=== PATIENT | female | born 1935 | race Two or more races ===

== ENCOUNTER 2017-06-30 02:02 | Inpatient (IN) | payer OTHER ==
[~2017-06-30] VITALS: Ht 175.3 cm; Wt 88.3 kg
[~2017-06-30 02:02] MED LIST: AMLO5TAB2 PO; ATOR20TA50 PO; CEPH500C PO; CLON0.1T PO; DOXY25SU3 OR; GABA-339 PO; LISI40TA PO; MELO15TA4 PO; MET50T PO; METF-370 PO; OXYB15TA12 PO; [UNRECOGNIZED DRUG - CODE] PO; [UNRECOGNIZED DRUG - CODE] PO
[2017-06-30 03:28] LABS: Basophils # (auto) 0.1 uL; Basophils % (auto) 0.7 % (0.0-2.0); Eosinophils # (auto) 0.1 uL; Eosinophils % (auto) 0.5 % (0.0-7.0); Hematocrit 41.5 % (36.0-46.0); Lymphocytes # (auto) 1.2 uL; Lymphocytes % (auto) 6.2 % (10.0-50.0); Mean Corpuscular Hemoglobin 29.6 pg (28.0-32.0); Mean Corpuscular Hgb Conc. 33.8 g/dL (32.0-36.0); Mean Corpuscular Volume 87.7 fL (80.0-100.0); Mean Platelet Volume 6.6 fL (6.9-10.8); Monocytes # (auto) 1.5 uL; Monocytes % (auto) 7.7 % (0.0-12.0); Neutrophils % (auto) 84.9 % (37.0-80.0); Nucleated Red Blood Cells % 0.1 %; Platelet Count (auto) 237 10^3/uL (140-450); Red Cell Distribution Width 14.5 % (11.8-14.3)
[2017-06-30 03:41] LABS: INR 0.9 (0.9-1.15); Partial Thromboplastin Time 27.5 sec (22.64-33.71); Prothrombin Time 9.8 sec (9.37-12.3)
[2017-06-30 03:46] LABS: Albumin 3.5 g/dL (3.4-5.0); BUN/Creatinine Ratio 21.1; Calcium 9.5 mg/dL (8.5-10.1); Potassium 4.3 mmol/L (3.5-5.1)
[2017-06-30 03:51] LABS: Bilirubin, Total 0.6 mg/dL (0.2-1.0); Total Protein 7.6 g/dL (6.4-8.2)
[2017-06-30] MEDS ORDERED: ALBUTEROL SULF 2.5 MG/0.5ML(0.5%) NEB SOLN NEB ONE (05:00)
[2017-06-30] MEDS ORDERED: IPRATROPIUM BROM 0.5 MG/2.5ML INH SOL NEB ONE (05:00)
[2017-06-30] MEDS ORDERED: PIPERACILLIN-TAZOB 3.375GM 50 ML IV ONE (05:00)
[2017-06-30] MEDS ORDERED: methylPREDNISolone SOD SUCC 125 MG/2 ML VL IV ONE (05:00)
[2017-06-30 05:19] LABS: Allen Test Yes; Base Excess 0.6 mmol/L (-2.0-2.0); Blood 02Sat 91.1 % (96-100); Blood COHb 0.4 % (0.5-1.5); Blood MetHb 0.2 % (0.0-1.5); HCO3 24.3 mmol/L (22-26.0); HHb 8.8 % (0.0-5.0); MODE ROOM AIR; O2Hb 90.6 % (94.0-97.0); PCO2(T) 36.8 mmHg (35.0-45.0); PO2 59.9 mmHg (80.0-100.0); Sample Type Arterial; pH 7.447 (7.350-7.450)
[2017-06-30 05:43] LABS: B-Type Natriuretic Peptide 81.87 pg/mL (0-100)
[2017-06-30 05:53] LABS: Temperature: 22.7 C (20.0-25.0)
[2017-06-30] MEDS ORDERED: NITROGLYCERIN 0.4 MG SL TAB SL PRN (09:45)
[2017-06-30] MEDS ORDERED: LACTULOSE 20Gm/30ML SOLN PO PRN (09:45)
[2017-06-30] MEDS ORDERED: ACETAMINOPHEN 500 MG TAB PO PRN (09:45)
[2017-06-30] MEDS ORDERED: OSELTAMIVIR 75 MG CAP PO ONE (09:45)
[2017-06-30] MEDS ORDERED: DEXTROSE (50%) 50ML SYRG IV PRN (09:45)
[2017-06-30] MEDS ORDERED: HYDROcodone-ACET 5/325MG TAB PO PRN (09:45)
[2017-06-30] MEDS ORDERED: MORPHINE SULF INJ 2 MG/ML SYRINGE 1ML IV PRN ×2 (09:45)
[2017-06-30] MEDS ORDERED: VANCOMYCIN PER PHARMACY 0 MG IV SCH (09:45)
[2017-06-30] MEDS ORDERED: ALBUTEROL SULF 2.5 MG/0.5ML(0.5%) NEB SOLN NEB PRN (09:45)
[2017-06-30] MEDS ORDERED: VANCOMYCIN 1GM/250ML 250 ML IV ONE (09:45)
[2017-06-30] MEDS ORDERED: PROMETHAZINE HCL 25 MG/ML 1ML IV PRN (09:45)
[2017-06-30] MEDS ORDERED: OSELTAMIVIR 75 MG CAP PO SCH (10:00)
[2017-06-30] MEDS ORDERED: AZITHROMYCIN 500MG/ 250ML 250 ML IV ONE (10:15)
[2017-06-30] MEDS: PANTOPRAZOLE 40 MG TAB PO SCH (11:16)
[2017-06-30] MEDS: ASPirin 81 mg TAB PO SCH (11:16)
[2017-06-30] MEDS: ENOXAPARIN SOD 40 MG/0.4 ML SYRINGE SC SCH (11:16)
[2017-06-30 11:36] VITALS: BP 130/47
[2017-06-30] MEDS: cefTRIAXone 1GM/10ml IVPUSH 10 ML IV SCH (11:36)
[2017-06-30] MEDS: SODIUM CHLORIDE 0.9% 1,000 ML IV SCH ×2 (11:36→23:11)
[2017-06-30] MEDS ORDERED: POTA10TA34 (11:45)
[2017-06-30] MEDS ORDERED: FUR20T (11:45)
[2017-06-30] MEDS ORDERED: FLUT100M (11:45)
[2017-06-30] MEDS: VANCOMYCIN 1GM/250ML 250 ML IV SCH (12:00)
[2017-06-30] MEDS ORDERED: cloNIDine HCL 0.1 MG TAB PO PRN (12:00)
[2017-06-30] MEDS ORDERED: PATIENTS OWN MEDICATION (Gabapentin 600 MG) PO SCH ×2 (12:00)
[2017-06-30] MEDS: ALBUTEROL SULF 2.5 MG/0.5ML(0.5%) NEB SOLN NEB SCH ×3 (12:14→23:38)
[2017-06-30] MEDS: IPRATROPIUM BROM 0.5 MG/2.5ML INH SOL NEB SCH ×3 (12:14→23:38)
[2017-06-30] MEDS: ACCU-CHEK COMFORT CURVE STRIP VI SCH ×3 (13:09→21:43)
[2017-06-30] MEDS: InsuLIN REG 1unit/0.01ml Soln (100units/ml) SC SCH ×3 (13:20→21:35)
[2017-06-30] MEDS: OXYBUTYNIN CHL 5 MG TAB PO SCH ×3 (13:29→21:26)
[2017-06-30] MEDS ORDERED: GABAPENTIN 400 MG CAP PO SCH (13:36)
[2017-06-30] MEDS ORDERED: methylPREDNISolone SOD SUCC 40 MG/ML VL IV SCH (17:00)
[2017-06-30 18:00] VITALS: BP 154/54
[2017-06-30] MEDS: BUDESONIDE (INHALATION) 0.5 MG/2 ML NEB NEB SCH (18:15)
[2017-06-30] MEDS: GABAPENTIN 400 MG CAP PO SCH (21:25)
[2017-06-30 22:00] VITALS: BP 155/41
[2017-06-30] MEDS ORDERED: OSELTAMIVIR 30 MG CAP PO SCH (22:00)
[2017-06-30] MEDS ORDERED: ADVAIR INH SCH (22:00)
[2017-07-01 05:00] VITALS: BP 155/100
[2017-07-01] MEDS: OXYBUTYNIN CHL 5 MG TAB PO SCH ×3 (05:54→20:59)
[2017-07-01] MEDS: GABAPENTIN 400 MG CAP PO SCH ×3 (05:54→20:58)
[2017-07-01] MEDS: methylPREDNISolone SOD SUCC 40 MG/ML VL IV SCH (05:54)
[2017-07-01] MEDS: InsuLIN REG 1unit/0.01ml Soln (100units/ml) SC SCH ×4 (06:01→22:00)
[2017-07-01] MEDS: ACCU-CHEK COMFORT CURVE STRIP VI SCH ×4 (06:02→21:00)
[2017-07-01] MEDS: IPRATROPIUM BROM 0.5 MG/2.5ML INH SOL NEB SCH ×3 (06:45→21:52)
[2017-07-01] MEDS: ALBUTEROL SULF 2.5 MG/0.5ML(0.5%) NEB SOLN NEB SCH ×3 (06:45→21:49)
[2017-07-01] MEDS: BUDESONIDE (INHALATION) 0.5 MG/2 ML NEB NEB SCH ×2 (06:46→21:52)
[2017-07-01 07:11] LABS: Basophils # (auto) 0 uL; Basophils % (auto) 0.1 % (0.0-2.0); Eosinophils # (auto) 0 uL; Hematocrit 38.5 % (36.0-46.0); Hemoglobin 12.8 g/dL (12.2-16.2); Lymphocytes # (auto) 1.2 uL; Lymphocytes % (auto) 5.5 % (10.0-50.0); Mean Corpuscular Hemoglobin 29.3 pg (28.0-32.0); Mean Corpuscular Hgb Conc. 33.4 g/dL (32.0-36.0); Mean Corpuscular Volume 87.9 fL (80.0-100.0); Mean Platelet Volume 7.1 fL (6.9-10.8); Monocytes # (auto) 1.1 uL; Monocytes % (auto) 5.1 % (0.0-12.0); Neutrophils # (auto) 19.3 uL; Neutrophils % (auto) 89.3 % (37.0-80.0); Nucleated Red Blood Cells % 0.1 %; Platelet Count (auto) 214 10^3/uL (140-450); Red Cell Distribution Width 14.3 % (11.8-14.3); White Blood Cell 21.7 10^3/uL (4.4-10.8)
[2017-07-01 07:35] LABS: Albumin 2.9 g/dL (3.4-5.0); BUN/Creatinine Ratio 23.7; Bilirubin, Total 0.5 mg/dL (0.2-1.0); Potassium 4.2 mmol/L (3.5-5.1); Total Protein 6.8 g/dL (6.4-8.2)
[2017-07-01 08:00] VITALS: BP 132/47
[2017-07-01 09:00] VITALS: BP 132/47
[2017-07-01] MEDS: cefTRIAXone 1GM/10ml IVPUSH 10 ML IV SCH (09:07)
[2017-07-01] MEDS: AZITHROMYCIN 500MG/ 250ML 250 ML IV SCH (09:47)
[2017-07-01] MEDS: ENOXAPARIN SOD 40 MG/0.4 ML SYRINGE SC SCH (09:47)
[2017-07-01] MEDS: PANTOPRAZOLE 40 MG TAB PO SCH (09:49)
[2017-07-01] MEDS: amLODIPine BESYLATE 5 MG TAB PO SCH (09:49)
[2017-07-01] MEDS: ASPirin 81 mg TAB PO SCH (09:49)
[2017-07-01] MEDS: LISINOPRIL 20 MG TAB PO SCH (09:49)
[2017-07-01] MEDS: MELOXICAM PO SCH (10:00)
[2017-07-01] MEDS ORDERED: VANCOMYCIN PER PHARMACY 0 MG IV SCH (12:00)
[2017-07-01] MEDS ORDERED: VANCOMYCIN 1GM/250ML 250 ML IV ONE (12:00)
[2017-07-01] MEDS: PIPERACILLIN-TAZOB 3.375GM 50 ML IV SCH ×3 (12:12→23:59)
[2017-07-01] MEDS: SODIUM CHLORIDE 0.9% 1,000 ML IV SCH (12:12)
[2017-07-01 13:00] VITALS: BP 141/61
[2017-07-01] MEDS: VANCOMYCIN 1GM/250ML 250 ML IV SCH (13:29)
[2017-07-01 16:27] LABS: Urine Bilirubin Negative (Negative); Urine Blood 1+ /uL (Negative); Urine Color Yellow (Yellow); Urine Glucose Normal (Normal); Urine Ketone Negative (Negative); Urine Nitrite Negative (Negative); Urine RBC 12 /hpf (0 - 4); Urine Squamous Epithelial Cell FEW /hpf (<5); Urine Urobilinogen Normal (Negative); Urine pH 5.5 (5.0-8.0)
[2017-07-01 17:00] VITALS: BP_SYST 125; BP_SYST 132; BP_DIAS 101; BP_DIAS 43
[2017-07-01] MEDS: TEMAZEPAM 15 MG CAP PO PRN (20:59)
[2017-07-01 21:30] VITALS: BP 151/62
[2017-07-02] MEDS: LORazepam 0.5 MG TAB PO PRN ×3 (01:15→23:24)
[2017-07-02] MEDS: IPRATROPIUM BROM 0.5 MG/2.5ML INH SOL NEB SCH ×4 (01:36→20:37)
[2017-07-02] MEDS: ALBUTEROL SULF 2.5 MG/0.5ML(0.5%) NEB SOLN NEB SCH ×4 (01:36→20:37)
[2017-07-02 05:00] VITALS: BP 152/54
[2017-07-02] MEDS: SODIUM CHLORIDE 0.9% 1,000 ML IV SCH ×2 (05:25→13:35)
[2017-07-02] MEDS: PIPERACILLIN-TAZOB 3.375GM 50 ML IV SCH ×4 (05:25→23:25)
[2017-07-02] MEDS: OXYBUTYNIN CHL 5 MG TAB PO SCH ×3 (05:26→21:03)
[2017-07-02] MEDS: methylPREDNISolone SOD SUCC 40 MG/ML VL IV SCH (05:26)
[2017-07-02] MEDS: GABAPENTIN 400 MG CAP PO SCH ×3 (05:26→21:03)
[2017-07-02 05:45] LABS: Basophils # (auto) 0 uL; Basophils % (auto) 0.1 % (0.0-2.0); Eosinophils # (auto) 0 uL; Hematocrit 35.8 % (36.0-46.0); Hemoglobin 12.1 g/dL (12.2-16.2); Lymphocytes # (auto) 1.3 uL; Lymphocytes % (auto) 6.8 % (10.0-50.0); Mean Corpuscular Hgb Conc. 33.9 g/dL (32.0-36.0); Mean Corpuscular Volume 88.4 fL (80.0-100.0); Mean Platelet Volume 7.1 fL (6.9-10.8); Monocytes # (auto) 1.3 uL; Monocytes % (auto) 6.8 % (0.0-12.0); Neutrophils # (auto) 16.9 uL; Neutrophils % (auto) 86.3 % (37.0-80.0); Platelet Count (auto) 218 10^3/uL (140-450); Red Cell Distribution Width 14.1 % (11.8-14.3); White Blood Cell 19.6 10^3/uL (4.4-10.8)
[2017-07-02] MEDS: InsuLIN REG 1unit/0.01ml Soln (100units/ml) SC SCH ×4 (06:16→21:12)
[2017-07-02] MEDS: ACCU-CHEK COMFORT CURVE STRIP VI SCH ×4 (06:17→22:00)
[2017-07-02] MEDS: BUDESONIDE (INHALATION) 0.5 MG/2 ML NEB NEB SCH ×2 (06:36→20:37)
[2017-07-02 08:00] VITALS: BP 165/67
[2017-07-02] MEDS: LISINOPRIL 20 MG TAB PO SCH (08:57)
[2017-07-02] MEDS: AZITHROMYCIN 500MG/ 250ML 250 ML IV SCH (08:57)
[2017-07-02] MEDS: MELOXICAM PO SCH (08:58)
[2017-07-02] MEDS: ASPirin 81 mg TAB PO SCH (08:58)
[2017-07-02] MEDS: ENOXAPARIN SOD 40 MG/0.4 ML SYRINGE SC SCH (08:58)
[2017-07-02] MEDS: amLODIPine BESYLATE 5 MG TAB PO SCH (08:58)
[2017-07-02] MEDS: PANTOPRAZOLE 40 MG TAB PO SCH (08:58)
[2017-07-02 09:00] VITALS: BP 163/75
[2017-07-02] MEDS: VANCOMYCIN 1GM/250ML 250 ML IV SCH (11:50)
[2017-07-02 13:00] VITALS: BP 149/56
[2017-07-02 17:00] VITALS: BP_SYST 148; BP_SYST 90; BP_DIAS 44; BP_DIAS 65
[2017-07-02] MEDS: LACTULOSE 20Gm/30ML SOLN PO SCH (21:02)
[2017-07-02] MEDS: TEMAZEPAM 15 MG CAP PO PRN (21:04)
[2017-07-02 22:02] VITALS: BP 148/65
[2017-07-03] MEDS: IPRATROPIUM BROM 0.5 MG/2.5ML INH SOL NEB SCH ×4 (00:58→19:23)
[2017-07-03] MEDS: ALBUTEROL SULF 2.5 MG/0.5ML(0.5%) NEB SOLN NEB SCH ×4 (00:59→19:24)
[2017-07-03 05:00] VITALS: BP 149/84
[2017-07-03] MEDS: SODIUM CHLORIDE 0.9% 1,000 ML IV SCH (05:24)
[2017-07-03] MEDS: InsuLIN REG 1unit/0.01ml Soln (100units/ml) SC SCH ×4 (05:27→22:09)
[2017-07-03] MEDS: PIPERACILLIN-TAZOB 3.375GM 50 ML IV SCH (05:27)
[2017-07-03] MEDS: ACCU-CHEK COMFORT CURVE STRIP VI SCH ×4 (05:28→22:09)
[2017-07-03] MEDS: methylPREDNISolone SOD SUCC 40 MG/ML VL IV SCH (05:29)
[2017-07-03] MEDS: OXYBUTYNIN CHL 5 MG TAB PO SCH ×3 (05:29→22:06)
[2017-07-03] MEDS: GABAPENTIN 400 MG CAP PO SCH ×3 (05:29→22:07)
[2017-07-03 06:43] LABS: Basophils # (auto) 0 uL; Basophils % (auto) 0.3 % (0.0-2.0); Eosinophils # (auto) 0 uL; Eosinophils % (auto) 0.1 % (0.0-7.0); Hematocrit 35.4 % (36.0-46.0); Hemoglobin 11.9 g/dL (12.2-16.2); Lymphocytes # (auto) 1.8 uL; Lymphocytes % (auto) 13.2 % (10.0-50.0); Mean Corpuscular Hemoglobin 29.9 pg (28.0-32.0); Mean Corpuscular Hgb Conc. 33.7 g/dL (32.0-36.0); Mean Corpuscular Volume 88.7 fL (80.0-100.0); Mean Platelet Volume 6.7 fL (6.9-10.8); Monocytes # (auto) 1.1 uL; Monocytes % (auto) 8.4 % (0.0-12.0); Neutrophils # (auto) 10.6 uL; Nucleated Red Blood Cells % 0.1 %; Platelet Count (auto) 214 10^3/uL (140-450); Red Cell Distribution Width 14.8 % (11.8-14.3); White Blood Cell 13.6 10^3/uL (4.4-10.8)
[2017-07-03 07:05] LABS: Calcium 8.9 mg/dL (8.5-10.1); Potassium 4.5 mmol/L (3.5-5.1)
[2017-07-03 07:19] LABS: BUN/Creatinine Ratio 18.4
[2017-07-03 08:00] VITALS: BP 156/79
[2017-07-03] MEDS: BUDESONIDE (INHALATION) 0.5 MG/2 ML NEB NEB SCH ×2 (08:02→19:24)
[2017-07-03] MEDS: MELOXICAM PO SCH (08:37)
[2017-07-03 09:00] VITALS: BP 156/79
[2017-07-03] MEDS: AZITHROMYCIN 500MG/ 250ML 250 ML IV SCH (09:37)
[2017-07-03] MEDS: LACTULOSE 20Gm/30ML SOLN PO SCH ×2 (09:37→22:09)
[2017-07-03] MEDS: ASPirin 81 mg TAB PO SCH (09:38)
[2017-07-03] MEDS: ENOXAPARIN SOD 40 MG/0.4 ML SYRINGE SC SCH (09:38)
[2017-07-03] MEDS: amLODIPine BESYLATE 5 MG TAB PO SCH (09:38)
[2017-07-03] MEDS: PANTOPRAZOLE 40 MG TAB PO SCH (09:38)
[2017-07-03] MEDS: LISINOPRIL 20 MG TAB PO SCH (09:39)
[2017-07-03 09:57] LABS: Temperature: 23.3 C (20.0-25.0)
[2017-07-03] MEDS ORDERED: METOPROLOL TARTRATE 25 MG TAB PO ONE (10:45)
[2017-07-03] MEDS: predniSONE 20 MG TAB PO SCH (11:20)
[2017-07-03 13:00] VITALS: BP 138/68
[2017-07-03 17:05] VITALS: BP 149/86
[2017-07-03 22:00] VITALS: BP 139/78
[2017-07-03] MEDS: METOPROLOL TARTRATE 25 MG TAB PO SCH (22:08)
[2017-07-04] MEDS: IPRATROPIUM BROM 0.5 MG/2.5ML INH SOL NEB SCH ×3 (00:41→11:33)
[2017-07-04] MEDS: ALBUTEROL SULF 2.5 MG/0.5ML(0.5%) NEB SOLN NEB SCH ×3 (00:41→11:33)
[2017-07-04] MEDS: amLODIPine BESYLATE 5 MG TAB PO SCH ×2 (05:49→09:40)
[2017-07-04] MEDS: OXYBUTYNIN CHL 5 MG TAB PO SCH ×2 (05:57→15:29)
[2017-07-04] MEDS: GABAPENTIN 400 MG CAP PO SCH ×2 (05:58→15:28)
[2017-07-04] MEDS: BUDESONIDE (INHALATION) 0.5 MG/2 ML NEB NEB SCH (06:08)
[2017-07-04] MEDS: ACCU-CHEK COMFORT CURVE STRIP VI SCH ×2 (06:31→13:24)
[2017-07-04] MEDS: InsuLIN REG 1unit/0.01ml Soln (100units/ml) SC SCH ×2 (06:31→13:25)
[2017-07-04 06:58] LABS: Basophils # (auto) 0 uL; Basophils % (auto) 0.1 % (0.0-2.0); Eosinophils # (auto) 0 uL; Eosinophils % (auto) 0.2 % (0.0-7.0); Hematocrit 40.3 % (36.0-46.0); Hemoglobin 13.3 g/dL (12.2-16.2); Lymphocytes # (auto) 2.1 uL; Lymphocytes % (auto) 14.6 % (10.0-50.0); Mean Corpuscular Hemoglobin 29.3 pg (28.0-32.0); Mean Corpuscular Hgb Conc. 33.2 g/dL (32.0-36.0); Mean Corpuscular Volume 88.5 fL (80.0-100.0); Mean Platelet Volume 6.8 fL (6.9-10.8); Monocytes # (auto) 1.3 uL; Monocytes % (auto) 9.1 % (0.0-12.0); Neutrophils # (auto) 10.8 uL; Nucleated Red Blood Cells % 0.1 %; Platelet Count (auto) 230 10^3/uL (140-450); Red Cell Distribution Width 14.3 % (11.8-14.3); White Blood Cell 14.2 10^3/uL (4.4-10.8)
[2017-07-04 07:15] LABS: Calcium 9.4 mg/dL (8.5-10.1); Potassium 4.8 mmol/L (3.5-5.1)
[2017-07-04 07:17] LABS: BUN/Creatinine Ratio 23.5
[2017-07-04 07:57] VITALS: BP 153/70
[2017-07-04 08:23] VITALS: BP 153/70
[2017-07-04] MEDS: ASPirin 81 mg TAB PO SCH (09:39)
[2017-07-04] MEDS: METOPROLOL TARTRATE 25 MG TAB PO SCH (09:39)
[2017-07-04] MEDS: PANTOPRAZOLE 40 MG TAB PO SCH (09:40)
[2017-07-04] MEDS: LISINOPRIL 20 MG TAB PO SCH (09:40)
[2017-07-04] MEDS: LACTULOSE 20Gm/30ML SOLN PO SCH (09:43)
[2017-07-04] MEDS ORDERED: AZITHROMYCIN 250 MG TAB PO SCH (10:00)
[2017-07-04] MEDS: MELOXICAM PO SCH (10:00)
[2017-07-04] MEDS: predniSONE 20 MG TAB PO SCH (10:07)
[2017-07-04 13:00] VITALS: BP 137/63
[2017-07-04 13:30] LABS: Allen Test Yes; Base Excess -4.5 mmol/L (-2.0-2.0); Blood 02Sat 93.3 % (96-100); Blood COHb 0.3 % (0.5-1.5); Blood MetHb 0.4 % (0.0-1.5); HCO3 19.3 mmol/L (22-26.0); HHb 6.7 % (0.0-5.0); MODE ROOM AIR; O2Hb 92.6 % (94.0-97.0); PCO2 32.4 mmHg (35.0-45.0); PCO2(T) 32.4 mmHg (35.0-45.0); PO2 69.7 mmHg (80.0-100.0); PO2(T) 69.7 mmHg (80.0-100.0); Room 0223T; Sample Type Arterial; pH 7.393 (7.350-7.450)
[2017-07-04 14:34] VITALS: BP 137/63
== END 2017-07-04 15:37 | disposition home or self-care (01) | DRG 871 ==
LOC: ER 02:02 → EDBD 02:02 → TELE 02:03 → TELE-CENTR 17:23
PROVIDERS: ADMIT Internal Medicine; ATTEND Family Medicine
DX: A41.9 Sepsis, unspecified organism (principal); J18.9 Pneumonia, unspecified organism; I11.0 Hypertensive heart disease with heart failure; E11.42 Type 2 diabetes mellitus with diabetic polyneuropathy; G93.89 Other specified disorders of brain; I50.9 Heart failure, unspecified; M41.9 Scoliosis, unspecified; J44.0 Chronic obstructive pulmonary disease with (acute) lower respiratory infection; E87.1 Hypo-osmolality and hyponatremia; J44.1 Chronic obstructive pulmonary disease with (acute) exacerbation; N39.0 Urinary tract infection, site not specified; W19.XXXA Unspecified fall, initial encounter; E78.5 Hyperlipidemia, unspecified; I65.22 Occlusion and stenosis of left carotid artery; I67.2 Cerebral atherosclerosis; M19.90 Unspecified osteoarthritis, unspecified site; R29.6 Repeated falls; S20.221A Contusion of right back wall of thorax, initial encounter; S70.01XA Contusion of right hip, initial encounter; Z96.659 Presence of unspecified artificial knee joint; M54.5 Low back pain; Y93.89 Activity, other specified; Z80.0 Family history of malignant neoplasm of digestive organs; Z82.49 Family history of ischemic heart disease and other diseases of the circulatory system; Z82.5 Family history of asthma and other chronic lower respiratory diseases; Z85.038 Personal history of other malignant neoplasm of large intestine; Y92.89 Other specified places as the place of occurrence of the external cause; Z79.899 Other long term (current) drug therapy; Z88.1 Allergy status to other antibiotic agents; Z88.2 Allergy status to sulfonamides
CPT/HCPCS: 36415; 36600; 70450; 71010; 71020; 72131; 74176; 80048; 80053; 80061; 81001; 82550; 82607; 82746; 82805; 82962; 83036; 83735; 83880; 84484; 85025; 85610; 85652; 85730; 87040; 87086; 87400; 93306; 93886; 94640; 94761; 96365; 96367; 96375; G9035; J1815; J2543

== ENCOUNTER 2018-01-06 19:00 | Inpatient (IN) | payer OTHER ==
[~2018-01-06] VITALS: Ht 157.5 cm; Wt 90.7 kg
[~2018-01-06 19:00] MED LIST changes: -ATOR20TA50 PO; -CEPH500C PO; -DOXY25SU3 OR; +FLUT100M; +FUR20T; -MELO15TA4 PO; +MELO1TAB56 PO; +POTA10TA34; -[UNRECOGNIZED DRUG - CODE] PO; -[UNRECOGNIZED DRUG - CODE] PO
[2018-01-06] MEDS ORDERED: methylPREDNISolone SOD SUCC 125 MG/2 ML VL IV ONE (19:30)
[2018-01-06 19:40] LABS: Basophils # (auto) 0.1 uL; Basophils % (auto) 0.5 % (0.0-2.0); Eosinophils # (auto) 0 uL; Hematocrit 42.8 % (36.0-46.0); Hemoglobin 14.6 g/dL (12.2-16.2); Lymphocytes # (auto) 2.7 uL; Lymphocytes % (auto) 12.3 % (10.0-50.0); Mean Corpuscular Hemoglobin 29.8 pg (28.0-32.0); Mean Corpuscular Volume 87.5 fL (80.0-100.0); Monocytes # (auto) 1.1 uL; Monocytes % (auto) 5.1 % (0.0-12.0); Neutrophils # (auto) 17.8 uL; Neutrophils % (auto) 82.1 % (37.0-80.0); Nucleated Red Blood Cells % 0.1 %; Platelet Count (auto) 222 10^3/uL (140-450); Red Blood Cells 4.89 10^6/uL (4.0-5.20); Red Cell Distribution Width 14.3 % (11.8-14.3); White Blood Cell 21.7 10^3/uL (4.4-10.8)
[2018-01-06] MEDS ORDERED: IPRATROPIUM BROM 0.5 MG/2.5ML INH SOL HHN ONE (20:00)
[2018-01-06] MEDS ORDERED: ALBUTEROL SULF 2.5 MG/0.5ML(0.5%) NEB SOLN HHN ONE (20:00)
[2018-01-06 20:02] LABS: Albumin 3.6 g/dL (3.4-5.0); Bilirubin, Total 0.8 mg/dL (0.2-1.0); Calcium 9.4 mg/dL (8.5-10.1); Potassium 3.8 mmol/L (3.5-5.1); Total Protein 7.8 g/dL (6.4-8.2)
[2018-01-06] MEDS ORDERED: cefTRIAXone 1GM/10ml IVPUSH 10 ML IV ONE ×2 (20:15→23:00)
[2018-01-06] MEDS ORDERED: CLINDAMYCIN 600MG IV 50 ML IV ONE (20:45)
[2018-01-06] MEDS ORDERED: ASPirin-EC 81 mg tab PO ONE (20:45)
[2018-01-06 20:48] LABS: Lactic Acid w/Reflex 2.7 mmol/L (0.4-2.0)
[2018-01-06] MEDS ORDERED: ACETAMINOPHEN 325 MG TAB PO ONE ×2 (20:58→21:00)
[2018-01-06 21:11] LABS: Urine Amorphous Crystal FEW /hpf (None Seen); Urine Bacteria FEW /hpf (None Seen); Urine Blood Negative /uL (Negative); Urine Specific Gravity 1.016 (1.001-1.035); Urine WBC 1 /hpf (0 - 5)
[2018-01-06] MEDS ORDERED: ONDANSETRON HCL 4 MG/2 ML VIAL ONE (21:55)
[2018-01-06] MEDS ORDERED: SODIUM CHLORIDE 0.9% 2,000 ML IV ONE (22:15)
[2018-01-06] MEDS ORDERED: ONDANSETRON HCL 4 MG/2 ML VIAL IV ONE (22:15)
[2018-01-06] MEDS ORDERED: MORPHINE SULF(PF) 0.5MG/ML 10ML VIAL IV PRN (23:00)
[2018-01-06] MEDS ORDERED: ALBUTEROL SULF 2.5 MG/0.5ML(0.5%) NEB SOLN NEB PRN (23:00)
[2018-01-06] MEDS ORDERED: ACETAMINOPHEN 325 MG TAB PO PRN (23:00)
[2018-01-06] MEDS ORDERED: TEMAZEPAM 15 MG CAP PO PRN (23:00)
[2018-01-06] MEDS ORDERED: NITROGLYCERIN 0.4 MG SL TAB SL PRN (23:00)
[2018-01-06] MEDS ORDERED: HYDROcodone-ACET 5/325MG TAB PO PRN (23:00)
[2018-01-06] MEDS ORDERED: ONDANSETRON HCL 4 MG/2 ML VIAL IV PRN (23:00)
[2018-01-06] MEDS ORDERED: IPRATROPIUM BROM 0.5 MG/2.5ML INH SOL NEB PRN (23:00)
[2018-01-06 23:07] VITALS: BP 137/50
[2018-01-07] MEDS ORDERED: ALBUTEROL SULF 2.5 MG/0.5ML(0.5%) NEB SOLN NEB PRN (03:30)
[2018-01-07 05:05] LABS: Basophils # (auto) 0 uL; Basophils % (auto) 0.1 % (0.0-2.0); Eosinophils # (auto) 0 uL; Hematocrit 36.7 % (36.0-46.0); Hemoglobin 12.4 g/dL (12.2-16.2); Lymphocytes # (auto) 0.6 uL; Lymphocytes % (auto) 3.3 % (10.0-50.0); Mean Corpuscular Hemoglobin 29.8 pg (28.0-32.0); Mean Corpuscular Hgb Conc. 33.8 g/dL (32.0-36.0); Monocytes # (auto) 0.4 uL; Neutrophils # (auto) 17.5 uL; Neutrophils % (auto) 94.6 % (37.0-80.0); Platelet Count (auto) 201 10^3/uL (140-450); Red Blood Cells 4.17 10^6/uL (4.0-5.20); Red Cell Distribution Width 14.2 % (11.8-14.3); White Blood Cell 18.5 10^3/uL (4.4-10.8)
[2018-01-07 05:50] LABS: Albumin 2.8 g/dL (3.4-5.0); BUN/Creatinine Ratio 14.3; Bilirubin, Total 0.6 mg/dL (0.2-1.0); Calcium 8.3 mg/dL (8.5-10.1); Potassium 3.6 mmol/L (3.5-5.1); Total Protein 6.1 g/dL (6.4-8.2)
[2018-01-07] MEDS: CLINDAMYCIN 600MG IV 50 ML IV SCH ×2 (06:00→14:00)
[2018-01-07] MEDS ORDERED: PANTOPRAZOLE 40 MG TAB PO SCH (06:00)
[2018-01-07] MEDS: metFORMIN HYDROCHLORIDE 500 MG TAB PO SCH ×2 (07:00→17:59)
[2018-01-07] MEDS ORDERED: GABAPENTIN 300 MG CAP PO SCH (10:00)
[2018-01-07] MEDS ORDERED: ASPirin 81 mg TAB PO SCH (10:00)
[2018-01-07] MEDS ORDERED: LISINOPRIL 20 MG TAB PO SCH (10:00)
[2018-01-07] MEDS ORDERED: METOPROLOL TARTRATE 25 MG TAB PO SCH (10:00)
[2018-01-07] MEDS ORDERED: ENOXAPARIN SOD 30 MG/0.3 ML SYRINGE SC SCH (10:00)
[2018-01-07] MEDS ORDERED: amLODIPine BESYLATE 5 MG TAB PO SCH (10:00)
[2018-01-07] MEDS ORDERED: FUROSEMIDE 20 MG TAB PO SCH (10:00)
[2018-01-07] MEDS ORDERED: AZITHROMYCIN 500MG/ 250ML 250 ML IV SCH (10:00)
[2018-01-07] MEDS ORDERED: cefTRIAXone 1GM/10ml IVPUSH 10 ML IV SCH (20:00)
[2018-01-07 20:28] VITALS: BP 156/93
== END 2018-01-07 20:51 | disposition short-term general hospital (02) | DRG 871 ==
LOC: EDBD 19:00 → ER 19:02 → TELE 19:03
PROVIDERS: ADMIT Nurse Practitioner; ATTEND Nurse Practitioner
DX: A41.9 Sepsis, unspecified organism (principal); J18.9 Pneumonia, unspecified organism; I13.0 Hypertensive heart and chronic kidney disease with heart failure and stage 1 through stage 4 chronic kidney disease, or unspecified chronic kidney disease; J44.0 Chronic obstructive pulmonary disease with (acute) lower respiratory infection; I50.42 Chronic combined systolic (congestive) and diastolic (congestive) heart failure; J44.1 Chronic obstructive pulmonary disease with (acute) exacerbation; L03.116 Cellulitis of left lower limb; I70.0 Atherosclerosis of aorta; E11.22 Type 2 diabetes mellitus with diabetic chronic kidney disease; E78.5 Hyperlipidemia, unspecified; N18.3 Chronic kidney disease, stage 3 (moderate); Z80.0 Family history of malignant neoplasm of digestive organs; Z82.49 Family history of ischemic heart disease and other diseases of the circulatory system; Z87.891 Personal history of nicotine dependence; Z89.411 Acquired absence of right great toe; Z79.4 Long term (current) use of insulin; Z79.899 Other long term (current) drug therapy
CPT/HCPCS: 36415; 36600; 71045; 80053; 81001; 82805; 83605; 83735; 83880; 84484; 85025; 87040; 93005; 93970; 94640; 94761; 96361; 96374; 96375; 99291; J2405; J3490